=== PATIENT | female | born 1995 | race Two or more races ===

== ENCOUNTER 2018-09-18 17:31 | Emergency (ER) | payer SELFPAY ==
[~2018-09-18] VITALS: Ht 172.7 cm; Wt 72.6 kg
--- NOTE | 2018-09-18 17:48 | NUR ---
ABDOMINAL PAIN X 2 HRS. "HAVEN'T EATEN ALL DAY AND ONLY TOOK ADVIL". 02/18 [place] ON EXHALE. PT AOX4, AMB, VSS, RR EVEN AND UNLABORED ON RA. SLIGHTLY DIAPHORETIC, WITH CHILLS, -FEVER. MOTHER AT BEDSIDE. READY FOR EVAL.
[2018-09-18] MEDS ORDERED: ONDANSETRON HCL/PF 4 MG/2 ML VIAL ONE ×3 (18:09→21:13)
[2018-09-18] MEDS ORDERED: MAG HYDROX/AL HYDROX/SIMETH 30 ML UDC ONE (18:09)
[2018-09-18] MEDS ORDERED: MORPHINE SULFATE INJ 2 MG/ML DISP.SYRIN ONE ×3 (18:09→21:13)
[2018-09-18 18:24] LABS: BILIRUBIN,URINE Negative (NEGATIVE); BLOOD, URINE Large Ery/uL (NEGATIVE); COLOR,URINE Yellow (YELLOW); KETONES,URINE 40 (NEGATIVE); LEUKOCYTE ESTERASE ,URINE Trace (NEGATIVE); NITRITE, URINE Negative (NEGATIVE); PH,URINE 6.5 (5.0-8.0); PROTEIN,URINE 30 mg/dl (NEGATIVE); UGLUCOSE Negative (NEGATIVE); UROBILINOGEN,URINE 0.2 EU/dL (0.2)
[2018-09-18 18:25] LABS: APPEARANCE,URINE SLIGHTLY CLOUDY (CLEAR)
[2018-09-18] MEDS ORDERED: LIDOCAINE VISCOUS 2% UD 15 ML UDC PO ONE (18:30)
[2018-09-18] MEDS ORDERED: MAG HYDROX/AL HYDROX/SIMETH 30 ML UDC PO ONE (18:30)
[2018-09-18] MEDS ORDERED: IV NS 0.9% 1,000 ML BAG IV ONE (18:30)
[2018-09-18] MEDS ORDERED: MORPHINE SULFATE INJ 2 MG/ML DISP.SYRIN IV ONE ×3 (18:30→21:00)
[2018-09-18] MEDS ORDERED: ONDANSETRON HCL/PF 4 MG/2 ML VIAL IVP ONE ×3 (18:30→21:00)
[2018-09-18 18:32] LABS: CREATININE 0.9 mg/dL (0.6-1.3); POTASSIUM 3.6 mmol/L (3.5-5.1)
[2018-09-18] MEDS ORDERED: LIDOCAINE VISCOUS 2% UD 15 ML UDC ONE (18:34)
[2018-09-18 18:38] LABS: ALBUMIN 4.7 g/dL (3.4-5.0); BILIRUBIN,DIRECT 0.1 mg/dL (0.0-0.2); BILIRUBIN,TOTAL 0.6 mg/dL (0.2-1.0); TOTAL PROTEIN, SERUM 7.8 g/dL (6.4-8.2)
[2018-09-18 18:41] LABS: BACTERIA,URINE Few /HPF (None Seen); RBC,URINE 51-80 /HPF (0-2)
[2018-09-18 18:42] LABS: SQUAMOUS EPITHELIAL CELL,UR Few /HPF (None Seen)
--- NOTE | 2018-09-18 19:07 | NUR ---
PT STATES PAIN HAD GONE DOWN TO 2/10, BUT HAS RETURNED. CATARINA KIMBALL NOTIFIED.
[2018-09-18 19:13] LABS: BASOPHILS % (AUTO) 0.3 % (0.0-2.0); EOSINOPHILS % (AUTO) 1.9 % (0.0-6.0); HEMATOCRIT 41 % (33-45); HEMOGLOBIN 13.8 g/dL (11.5-14.8); LYMPHOCYTES # (AUTO) 1.1 /CMM (0.8-4.8); LYMPHOCYTES % (AUTO) 10.5 % (20.0-44.0); MEAN CORPUSCULAR HGB CONC 34 g/dl (31.0-36.0); MEAN CORPUSCULAR VOLUME 86 fL (82-100); MONOCYTES # (AUTO) 0.5 /CMM (0.1-1.30); MONOCYTES % (AUTO) 4.3 % (2.0-12.0); NEUTROPHILS # (AUTO) 8.9 /CMM (1.8-8.9); PLATELET COUNT (AUTO) 300 /CMM (150-450); RED BLOOD CELL COUNT(AUTO) 4.79 MIL/uL (4.0-5.2); WHITE BLOOD COUNT (AUTO) 10.7 K/uL (4.3-11.0)
--- NOTE | 2018-09-18 20:05 | NUR ---
CONTROLLER REPAIRER AND TESTER AT BEDSIDE
--- NOTE | 2018-09-18 21:25 | NUR ---
MEDICATION GIVEN. PT STATES VOMITING HAS CEASED. WILL CONT TO MONITOR.
--- NOTE | 2018-09-18 21:45 | NUR ---
PT TAKEN TO CT VIA PRE[facility]
[2018-09-18] MEDS ORDERED: DICYCLOMINE HCL INJ 20 MG/2 ML AMPUL IM ONE ×2 (23:25→23:30)
--- NOTE | 2018-09-18 23:39 | NUR ---
IV removed. Catheter intact and site benign. Pressure and 4x4 applied to site. No bleeding noted.Patient discharged to home in stable condition. Written and verbal after care instructions given. Patient verbalizes understanding of instruction.
[2018-09-18 23:40] VITALS: BP 130/86
== END 2018-09-18 23:41 | disposition home or self-care (01) ==
LOC: ER 17:35
DX: R10.13 Epigastric pain (principal); J45.909 Unspecified asthma, uncomplicated; Z88.0 Allergy status to penicillin; Z88.1 Allergy status to other antibiotic agents
CPT/HCPCS: 36415; 74176; 76705; 80048; 80076; 81001; 83690; 84703; 85025; 96361; 96372; 96374; 96375; 96376; 99284; J0500; J2270 ×3; J2405 ×3; J7030; 81000-TC

== ENCOUNTER 2019-01-20 16:10 | Emergency (ER) | payer MEDICAID ==
[~2019-01-20] VITALS: Ht 172.7 cm; Wt 70.3 kg
[2019-01-20] MEDS ORDERED: IV NS 0.9% 1,000 ML BAG IV ONE (17:00)
[2019-01-20] MEDS ORDERED: KETOROLAC TROMETHAMINE INJ 30 MG/ML VIAL IV ONE ×2 (17:00→19:30)
[2019-01-20] MEDS ORDERED: ONDANSETRON HCL/PF 4 MG/2 ML VIAL IVP ONE (17:00)
[2019-01-20 17:30] LABS: BASOPHILS % (AUTO) 0.2 % (0.0-2.0); HEMATOCRIT 37 % (33-45); HEMOGLOBIN 12.5 g/dL (11.5-14.8); LYMPHOCYTES # (AUTO) 0.8 /CMM (0.8-4.8); LYMPHOCYTES % (AUTO) 4.5 % (20.0-44.0); MEAN CORPUSCULAR HGB CONC 33 g/dl (31.0-36.0); MEAN CORPUSCULAR VOLUME 88 fL (82-100); MONOCYTES % (AUTO) 5.9 % (2.0-12.0); NEUTROPHILS # (AUTO) 15.4 /CMM (1.8-8.9); NEUTROPHILS % (AUTO) 89.4 % (43.0-81.0); PLATELET COUNT (AUTO) 179 /CMM (150-450); RED BLOOD CELL COUNT(AUTO) 4.26 MIL/uL (4.0-5.2); WHITE BLOOD COUNT (AUTO) 17.2 K/uL (4.3-11.0)
--- NOTE | 2019-01-20 17:32 | NUR ---
RICHELLE LOWER BACK PAIN "LIKE MY KIDNEYS" X2 DAYS, EPIGASTRIC PAIN ON PALP REPORTS FEVER 103.6 LAST NIGHT, DENIES DYSURIA. PT AAOX4, VSS. RR EVEN & UNLABORED. DENIES CP, SOB, DIZZINESS, N/V/D @ THIS TIME. SEEN & EVAL'D BY CATARINA KIMBALL & WILL CONT TO MONITOR.
[2019-01-20 17:39] LABS: CALCIUM, SERUM 8.6 mg/dL (8.5-10.1); CREATININE 1.1 mg/dL (0.6-1.3); POTASSIUM 3.4 mmol/L (3.5-5.1)
[2019-01-20] MEDS ORDERED: ONDANSETRON HCL/PF 4 MG/2 ML VIAL ONE (17:39)
[2019-01-20] MEDS ORDERED: KETOROLAC TROMETHAMINE INJ 30 MG/ML VIAL ONE ×2 (17:39→19:03)
[2019-01-20 17:44] LABS: ALBUMIN 3.4 g/dL (3.4-5.0); BILIRUBIN,DIRECT 0.2 mg/dL (0.0-0.2); BILIRUBIN,TOTAL 0.6 mg/dL (0.2-1.0); TOTAL PROTEIN, SERUM 7.2 g/dL (6.4-8.2)
[2019-01-20] MEDS ORDERED: MORPHINE SULFATE INJ 4 MG/ML DISP.SYRIN ONE ×2 (17:47→20:06)
[2019-01-20 17:48] LABS: APPEARANCE,URINE Slightly Cloudy (CLEAR); BILIRUBIN,URINE Negative (NEGATIVE); BLOOD, URINE Small Ery/uL (NEGATIVE); COLOR,URINE Yellow (YELLOW); KETONES,URINE 15 (NEGATIVE); LEUKOCYTE ESTERASE ,URINE Moderate (NEGATIVE); NITRITE, URINE Negative (NEGATIVE); PROTEIN,URINE 100 mg/dl (NEGATIVE); UGLUCOSE Negative (NEGATIVE); UROBILINOGEN,URINE 0.2 EU/dL (0.2)
--- NOTE | 2019-01-20 17:52 | NUR ---
MEDICATED ORDERED, PT HELADIO WELL.
[2019-01-20 17:59] LABS: BACTERIA,URINE Many /HPF (None Seen); SQUAMOUS EPITHELIAL CELL,UR Many /HPF (None Seen)
[2019-01-20] MEDS ORDERED: MORPHINE SULFATE INJ 2 MG/ML DISP.SYRIN IV ONE ×2 (18:00→20:30)
[2019-01-20 18:25] LABS: BAND % (MANUAL) 22 % (0.0-5.0); LYMPHOCYTES % (MANUAL) 8 % (16-48); MONOCYTES % (MANUAL) 5 % (0-11.0); NEUTROPHILS % (MANUAL) 65 (42-76)
[2019-01-20] MEDS ORDERED: LEVOFLOXACIN 750 MG /D5W 150ML 150 ML IV ONE ×2 (18:30→18:47)
--- NOTE | 2019-01-20 19:17 | NUR ---
pt received in bed. sleeping and easily arrousable.
--- NOTE | 2019-01-20 20:24 | NUR ---
Patient discharged to home in stable condition. Written and verbal after care instructions given. Patient verbalizes understanding of instruction.IV removed. Catheter intact and site benign. Pressure and 4x4 applied to site. No bleeding noted.Pt ambulatory with a steady gait
[2019-01-20 20:25] VITALS: BP 110/66
== END 2019-01-20 20:26 | disposition home or self-care (01) ==
LOC: ER 16:10
DX: N12 Tubulo-interstitial nephritis, not specified as acute or chronic (principal); J45.909 Unspecified asthma, uncomplicated; F17.200 Nicotine dependence, unspecified, uncomplicated; Z88.0 Allergy status to penicillin; Z88.1 Allergy status to other antibiotic agents
CPT/HCPCS: 36415; 74176; 76705; 80048; 80076; 81001; 83690; 84703; 85025; 87077; 87086; 87186; 96365; 96375; 96376; 99284; J1885; J1956; J2270 ×2; J2405; J7030; 81000-TC

== ENCOUNTER 2019-05-28 12:54 | Emergency (ER) | payer SELFPAY ==
[~2019-05-28] VITALS: Ht 172.7 cm; Wt 68.0 kg
[2019-05-28 13:09] VITALS: BP 131/91
== END 2019-05-28 13:59 | disposition home or self-care (01) ==
LOC: ER 12:54
DX: S20.212A Contusion of left front wall of thorax, initial encounter (principal); J45.909 Unspecified asthma, uncomplicated; F17.200 Nicotine dependence, unspecified, uncomplicated; Z88.0 Allergy status to penicillin; Z88.1 Allergy status to other antibiotic agents; W01.0XXA Fall on same level from slipping, tripping and stumbling without subsequent striking against object, initial encounter; Y93.89 Activity, other specified; Y92.89 Other specified places as the place of occurrence of the external cause; Y99.8 Other external cause status
CPT/HCPCS: 71100-TC

== ENCOUNTER 2019-06-09 22:59 | Emergency (ER) | payer SELFPAY ==
[~2019-06-09] VITALS: Ht 172.7 cm; Wt 68.0 kg
--- NOTE | 2019-06-09 23:12 | NUR ---
BIBS. L LOWER RIB AREA PAIN. HEARD A CRACKING SOUND WHILE STRECHING THEN PAIN STARTED AT 2200, MD AT BEDSIDE FOR EVAL
--- NOTE | 2019-06-09 23:39 | NUR ---
PT BAKC FROM [facility]
[2019-06-09] MEDS ORDERED: ACETAMINOPHEN ES 500 MG TABLET ONE (23:56)
[2019-06-10] MEDS ORDERED: ACETAMINOPHEN 325 MG TABLET PO ONE
[2019-06-10] MEDS ORDERED: LORAZEPAM 1 MG TABLET PO ONE (00:30)
[2019-06-10] MEDS ORDERED: LORAZEPAM 1 MG TABLET ONE (00:38)
[2019-06-10 00:44] VITALS: BP 129/76
== END 2019-06-10 00:44 | disposition home or self-care (01) ==
LOC: ER 23:01
DX: S22.42XA Multiple fractures of ribs, left side, initial encounter for closed fracture (principal); J45.909 Unspecified asthma, uncomplicated; F17.200 Nicotine dependence, unspecified, uncomplicated; Z88.0 Allergy status to penicillin; Z88.1 Allergy status to other antibiotic agents; W01.0XXA Fall on same level from slipping, tripping and stumbling without subsequent striking against object, initial encounter; Y93.89 Activity, other specified; Y92.89 Other specified places as the place of occurrence of the external cause; Y99.8 Other external cause status
CPT/HCPCS: 71100-TC

== ENCOUNTER 2019-06-14 12:22 | Emergency (ER) | payer SELFPAY ==
[~2019-06-14] VITALS: Ht 172.7 cm; Wt 68.0 kg
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
[2019-06-14] MEDS ORDERED: HYDROCODONE/APAP 5/325MG 1 EACH TABLET ONE (13:58)
[2019-06-14] MEDS ORDERED: HYDROCODONE/APAP 5/325MG 1 EACH TABLET PO ONE (14:00)
--- NOTE | 2019-06-14 14:17 | NUR ---
[facility] FORM SIGNED.
--- NOTE | 2019-06-14 14:23 | NUR ---
RADIOLOGY CALLED FOR CT
--- NOTE | 2019-06-14 15:39 | NUR ---
CALLED NAOMI FOR READ.
--- NOTE | 2019-06-14 15:55 | NUR ---
Patient discharged to home in stable condition. Written and verbal after care instructions given. Patient verbalizes understanding of instruction. Patient given and explained to prescriptions. Patient understands operate behind any machinery when taking the prescribed medication.
[2019-06-14 15:56] VITALS: BP 118/73
== END 2019-06-14 15:56 | disposition home or self-care (01) ==
LOC: ER 12:32
DX: S06.0X0A Concussion without loss of consciousness, initial encounter (principal); S22.42XA Multiple fractures of ribs, left side, initial encounter for closed fracture; S16.1XXA Strain of muscle, fascia and tendon at neck level, initial encounter; S05.12XA Contusion of eyeball and orbital tissues, left eye, initial encounter; S05.11XA Contusion of eyeball and orbital tissues, right eye, initial encounter; S09.8XXA Other specified injuries of head, initial encounter; J45.909 Unspecified asthma, uncomplicated; F17.200 Nicotine dependence, unspecified, uncomplicated; Z88.0 Allergy status to penicillin; Z88.1 Allergy status to other antibiotic agents; Y08.89XA Assault by other specified means, initial encounter; Y93.89 Activity, other specified; Y92.89 Other specified places as the place of occurrence of the external cause; Y99.8 Other external cause status
CPT/HCPCS: 70450-TC; 71100-TC; 72125-TC